=== PATIENT | male | born 1965 | race Caucasian/White ===

== ENCOUNTER 2016-07-16 14:32 | Emergency (ER) | payer OTHER ==
[2016-07-16 14:45] VITALS: BP 156/86
--- NOTE | 2016-07-16 16:31 | RAD ---
Indication: Left fourth finger injury. 3 views of the left ring finger demonstrates no fracture although there is a soft tissue defect noted. IMPRESSION: No fracture or foreign body is identified.
[2016-07-16] MEDS ORDERED: HYDROcodone/ACETAMIN 5-325 MG* 1 TAB PO ONE (17:20)
[2016-07-16] MEDS ORDERED: Tetan/Diph/Pertus SYR(Tdap)* 0.5 ML SYR(BOOSTRIX) use SYR IM ONE (17:20)
--- NOTE | 2016-07-18 08:38 | ED ---
I, Oh,Stu, scribed for Kemar Donis MD on 07/16/16 at 1720 . Upper Extremity Pain - HPI Summary HPI Summary: This 51 y/o male presents to ED for LUE #4 digit laceration at 1400 PM today. 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 Pt reports mild numbness at LUE #4 digit with laceration, but denies any limited ROM. He does report mild discomfort at finger due to his inability to remove his ring finger. Pt is not UTD with tetanus shot. PMHx includes borderline HTN that is not controlled with any medications. - History of Current Complaint Stated Complaint: LT HAND LAC Time Seen by Provider: 07/16/16 15:46 Hx Obtained From: Patient Onset/Duration: Started Hours Ago, Traumatic, Still Present Timing: Constant Severity Initially: Mild Severity Currently: Mild Pain Location: Finger - LUE #4 finger Aggravating Factor(s): Nothing Alleviating Factor(s): Nothing Associated Signs & Symptoms: Positive: Numbness/Tingling - tip of LUE #4 digit. Negative: Fever - Allergies/Home Medications Allergies/Adverse Reactions: Allergies Allergy/AdvReac Type Severity Reaction Status Date / Time No Known Allergies Allergy Verified 07/16/16 14:41 PMH/Surg Hx/FS Hx/Imm Hx Cardiovascular History: Reports: Hx Hypertension - borderline Infectious Disease History: No Infectious Disease History: Denies: Traveled Outside the [place] in Last 30 Days - Family History Known Family History: Positive: Other - Father -- of lung CA. Mother -- breast CA - Social History Alcohol Use: None Hx Substance Use: No Substance Use Type: Reports: None Hx Tobacco Use: No Smoking Status (MU): Never Smoked Tobacco Review of Systems Negative: Fever, Chills Negative: Erythema Negative: Sore Throat Negative: Chest Pain Negative: Shortness Of Breath, Cough Negative: Abdominal Pain, Nausea Negative: dysuria, hematuria Negative: Myalgia Positive: Other - Linear laceration at LUE #4 digit Neurological: Other - negative dizziness Positive: Numbness - at tip of LUE #4 digit Negative: Anxious, Depressed All Other Systems Reviewed And Are Negative: Yes Physical Exam - Summary Physical Exam Summary: Constitutional: Well-developed, Well-nourished, Alert. (-) Distressed Skin: Warm, Dry. Linear laceration at LUE #4 digit radial side, 1 cm. HENT: Normocephalic; Atraumatic Eyes: Conjunctiva normal Neck: Musculoskeletal ROM normal neck. (-) JVD, (-) Stridor, (-) Tracheal deviation Cardio: Rhythm regular, rate normal, Heart sounds normal; Intact distal pulses; The pedal pulses are 2+ and symmetric. Radial pulses are 2+ and symmetric. (-) Murmur Pulmonary/Chest wall: Effort normal. (-) Respiratory distress, (-) Wheezes, (-) Rales Abd: Soft, (-) Tenderness, (-) Distension, (-) Guarding, (-) Rebound Musculoskeletal: (-) Edema. FROM at LUE #4 digit. Extensor tendon intact. Full extension. FDS and FDP intact. distal sensation was diminished. Lymph: (-) Cervical adenopathy Neuro: Alert, Oriented x3 Psych: Mood and affect Normal Triage Information Reviewed: Yes Vital Signs On Initial Exam: Initial Vitals Temp Pulse Resp BP Pulse Ox 97.3 F 94 20 156/86 98 07/16/16 14:41 07/16/16 14:41 07/16/16 14:41 07/16/16 14:41 07/16/16 14:41 Vital Signs Reviewed: Yes Procedures - Laceration/Wound Repair 1 Location: upper extremity - LUE finger #4 digit Description: Linear Anesthesia: Digital, 1.0% - 4 ml, Lido Irrigated w/ Saline (ccs): 1,000 Laceration/Wound Explored: no foreign body removed Suture Type: Other - Surgipro, monofilament propylene, 4-0 Number of Sutures: 6 - Simple interrupted Diagnostics - Vital Signs Vital Signs Temp Pulse Resp BP Pulse Ox 07/16/16 15:04 97.3 F 94 20 156/86 100 07/16/16 14:41 97.3 F 94 20 156/86 98 - Laboratory Lab Statement: Any lab studies that have been ordered have been reviewed, and results considered in the medical decision making process. - Radiology LUE finger Xray Interpretation: No Acute Changes - Negative fracture or FB Radiology Interpretation Completed By: Radiologist Re-Evaluation - Re-Evaluation First Eval Re-Evaluation Time: 18:05 Comment: in room to perform laceration repair. Course/Dx - Course Assessment/Plan: This 51 y/o male presents to ED for linear laceration to LUE # 4 digit, radial aspect. Pt states that pain is tolerable but reports mild numbness at tip of #4 digit. Upon examination, extensor tendon is noted intact and pt was able to fully extend his finger. Positive decreased sensation at tip of LUE #4 digit Bleeding is controlled at time of initial evaluation. FDS and FDP are intact. Laceration repair was performed with 4-0 SurgiPro after digital nerve block injection of 1.0 % lidocaine. 6 suture. Pt is able to tolerate pain well. Pt is discharged with hand referral to Dr. Forbes. - Diagnoses Provider Diagnoses: Finger laceration Discharge - Discharge Plan Condition: Stable Disposition: HOME Patient Education Materials: Laceration (ED), Care For Your Stitches (ED) Referrals: Eric Caban DO [Primary Care Provider] - Ricardo Forbes MD [Medical Doctor] - 2 Days Additional Instructions: Please be sure to remove your suture in 7 days. The documentation as recorded by the Anthony garcia Soohyun accurately reflects the service I personally performed and the decisions made by , Kemar Donis MD.
== END 2016-07-16 18:40 | disposition home or self-care (01) ==
LOC: EDBD → ED 14:32
DX: S61.215A Laceration without foreign body of left ring finger without damage to nail, initial encounter (principal); W45.8XXA Other foreign body or object entering through skin, initial encounter; Y93.9 Activity, unspecified; Y92.9 Unspecified place or not applicable
CPT/HCPCS: 73140; 90471; 90715; 99282